=== PATIENT | female | born 1960 | race Caucasian/White ===

== ENCOUNTER → 2020-03-18 | Outpatient (CLI) | payer BC ==
--- NOTE | 2020-03-25 12:10 | RAD ---
DATE: 03/18/2020 EXAM: MAMMO NARCISA SCREENING BILATERAL HISTORY: Screening COMPARISON: 03/04/2020 and 03/11/2019 This study was interpreted with the benefit of Computerized Aided Detection (CAD). Breast Density: The breast parenchyma shows scattered fibroglandular densities. Breast parenchyma level B. FINDINGS: There is a 7 mm ovoid mass in the right breast, 5.9 cm posterior to the nipple at approximately 10:00 seen only on right MLO to the tomosynthesis view. This was not definitively seen on the prior exam. There are benign bilateral calcifications. Focal asymmetry in the upper outer left breast correlates with site of previously biopsied calcifications and is likely postbiopsy changes. No suspicious calcifications or architectural distortion. IMPRESSION: 7 mm ovoid mass in the upper outer right breast. Recommend spot compression CC and MLO views and ultrasound further evaluate. BI-RADS CATEGORY: 0- INCOMPLETE. NEED ADDITIONAL IMAGING EVALUATION. RECOMMENDED FOLLOW-UP: Spot compression views and ultrasound of upper outer right breast mass. PQRS compliance statement: Mammography is a sensitive method for finding small breast cancers, but it does not detect them all and is not a substitute for careful clinical examination. A negative mammogram does not negate a clinically suspicious finding and should not result in delay in biopsying a clinically suspicious abnormality. "Our facility is accredited by the [employer] Mammography [employer]." MTDD
== END ==
LOC: MAMMO 15:02
PROVIDERS: ATTEND Family Medicine
DX: Z12.31 Encounter for screening mammogram for malignant neoplasm of breast (principal); N63.11 Unspecified lump in the right breast, upper outer quadrant
CPT/HCPCS: 77063; 77067

== ENCOUNTER → 2020-04-07 | Outpatient (CLI) | payer BC ==
--- NOTE | 2020-04-07 14:22 | RAD ---
DATE: 04/07/2020 EXAM: DIGITAL DIAGNOSTIC RT, BREAST RIGHT HISTORY: Recall from screening mammogram for right breast mass COMPARISON: Screening mammogram 03/18/2020 This study was interpreted with the benefit of Computerized Aided Detection (CAD). Breast Density: SCATTERED The breast parenchyma shows scattered fibroglandular densities. Breast parenchyma level B. FINDINGS: Mammogram: The mass at 10:00 in the right breast persists on at least one spot compression view. ULTRASOUND: There is an ovoid hypoechoic mass with microlobulated margins at 10:00 in the right breast, 6 cm from the nipple. This measures 5 x 2 x 4 mm. There is no internal vascularity. There is a normal-appearing lymph node in the right axilla. IMPRESSION: Mildly suspicious 5 mm mass in the right breast. Recommend ultrasound-guided biopsy. BI-RADS CATEGORY: 4 SUSPICIOUS ABNORMALITY- BIOPSY SHOULD BE CONSIDERED RECOMMENDED FOLLOW-UP: BIO BIOPSY RECOMMENDED PQRS compliance statement: Mammography is a sensitive method for finding small breast cancers, but it does not detect them all and is not a substitute for careful clinical examination. A negative mammogram does not negate a clinically suspicious finding and should not result in delay in biopsying a clinically suspicious abnormality. "Our facility is accredited by the [employer] Mammography [employer]."
== END ==
LOC: MAMMO 12:44
PROVIDERS: ATTEND Family Medicine
DX: R92.2 Inconclusive mammogram (principal); N63.11 Unspecified lump in the right breast, upper outer quadrant
CPT/HCPCS: 76641; 77065